=== PATIENT | female | born 1960 | race Caucasian/White ===

== ENCOUNTER 2020-11-17 20:47 | Emergency (ER) | payer OTHER ==
[~2020-11-17 20:47] MED LIST: COZAAR 25MG TAB25 MG PO; MIRALAX17 GM PO; MOTRIN600 MG PO; ZOFRAN4 MG PO
[2020-11-17 23:16] LABS: BASOPHIL 0.9 % (0-2); EOSINOPHIL 4.2 % (0-5); HCT 45.2 % (37.0-47.0); HGB 15.1 g/dl (12.5-16.0); LYMPHOCYTE 32.1 % (15-48); MCH 34.2 pg (25.0-31.0); MCHC 33.4 g/dL (32.0-36.0); MCV 102.3 fL (78.0-100.0); MONOCYTE 8.4 % (0-12); MPV 10.4 fL (6.0-9.5); NEUTROPHIL 53.3 % (41-80); NRBC 0; PLT 264 K/uL (150-400); RBC 4.42 M/uL (4.20-5.40); RDW 12.7 % (11.5-14.0)
[2020-11-17 23:26] LABS: BUN/CREAT RATIO (CALC) 18.9 RATIO; CREATININE 1.27 mg/dL (0.51-0.95); POTASSIUM 3.7 mmol/L (3.5-5.1)
[2020-11-17 23:35] LABS: PRO-BNP 79 pg/mL (<125)
[2020-11-18] MEDS ORDERED: PREDNISONE 20MG20 MG PO (01:47)
== END 2020-11-18 02:05 | disposition home or self-care (01) ==
LOC: FER 20:47
PROVIDERS: Emergency Medicine
DX: J44.9 Chronic obstructive pulmonary disease, unspecified (principal); R22.40 Localized swelling, mass and lump, unspecified lower limb; I10 Essential (primary) hypertension; F17.210 Nicotine dependence, cigarettes, uncomplicated; Z79.899 Other long term (current) drug therapy
CPT/HCPCS: 36415; 71046; 80048; 83880; 84484; 85025

== ENCOUNTER 2021-05-06 18:54 | Emergency (ER) | payer OTHER ==
[~2021-05-06 18:54] MED LIST changes: +PREDNISONE 20MG20 MG PO
[2021-05-07 02:59] LABS: CORONAVIRUS 2019 SARS-COV-2 NEGATIVE (NEGATIVE); INFLUENZA A NAA NEGATIVE (NEGATIVE)
== END 2021-05-07 04:30 | disposition left against medical advice (07) ==
LOC: FER 18:54
PROVIDERS: Internal Medicine
DX: R05.9 Cough, unspecified (principal); R09.81 Nasal congestion; Z20.822 Contact with and (suspected) exposure to COVID-19; Z53.8 Procedure and treatment not carried out for other reasons
CPT/HCPCS: U0002